=== PATIENT | female | born 1965 | race Caucasian/White ===

== ENCOUNTER 2017-01-01 14:44 | Inpatient (IN) ==
[2017-01-01 15:34] LABS: MANUAL DIFF NEEDED? NO
[2017-01-01 15:41] LABS: URINE CULTURE PL NEEDED? NO
[2017-01-01 15:43] LABS: AGAP 11; ALBUMIN 4.6 g/dL (3.5-5.0); ALKALINE PHOSPHATASE 65 U/L (32-104); BUN 9 mg/dL (8-22); CALCIUM 9.7 mg/dL (8.8-10.2); CHLORIDE 97 mmol/L (98-107); COSMO 276; GOT 20 U/L (10-30); GPT 24 U/L (10-36); POTASSIUM 3.6 mmol/L (3.5-5.1); SODIUM 136 mmol/L (136-145); TCO2 29 mmol/L (25-35); TOTAL BILIRUBIN < 0.15 mg/dL (0.20-1.00); TOTAL PROTEIN 7.1 g/dL (6.3-8.3)
[2017-01-01 15:44] LABS: BASO% 0.1 % (0.0-0.8); EOS# 0.01 X1000 (0.0-0.7); EOS% 0.1 % (0.0-10.0); HEMATOCRIT 42.6 % (37.0-47.0); HEMOGLOBIN 14.3 g/dL (12.0-16.0); IMM GRAN# 0.02 X1000 (0.0-0.04); IMM GRAN% 0.2 % (0.0-0.5); LYMPH# 2.69 X1000 (1.2-3.4); LYMPH% 31.5 % (20.5-51.1); MCH 28.8 PG (27-31); MCHC 33.6 g/dL (33-37); MCV 85.9 FL (81-99); MONO# 0.67 X1000 (0.11-0.59); MONO% 7.8 % (1.7-9.3); MPV 9.7 FL (7.4-10.4); NEUT% 60.3 % (42.2-75.2); PLT 313 X1000 (130-400); RBC 4.96 XMIL (4.2-5.4)
--- NOTE | 2017-01-01 15:47 | EKG Report ---
Test Performed on : 01/01/2017 3:15:30 PM Test Reason : stroke Blood Pressure : / mmHG Vent. Rate : 091 BPM Atrial Rate : 091 BPM P-R Int : 142 ms QRS Dur : 088 ms QT Int : 366 ms P-R-T Axes : 076 039 114 degrees QTc Int : 450 ms Normal sinus rhythm. Possible Left atrial enlargement Nonspecific ST and T wave abnormality Abnormal ECG When compared with ECG of 03-JAN-2014 12:52, Nonspecific T wave abnormality now evident in Inferior leads Nonspecific T wave abnormality, improved in Lateral leads Unconfirmed Result
[2017-01-01 15:49] LABS: BILIRUBIN URINE NEGATIVE (NEGATIVE); BLOOD URINE NEGATIVE (NEGATIVE); CLARITY CLEAR (CLEAR); COLOR YELLOW; GLUCOSE URINE NEGATIVE (NEGATIVE); LEUKOCYTES URINE TRACE (NEGATIVE); NITRITE URINE NEGATIVE (NEGATIVE); PH URINE 6.5; PROTEIN URINE NEGATIVE (NEGATIVE); UROBILINOGEN URINE NORMAL
[2017-01-01 15:53] LABS: INR 0.89 (0.86-1.15); PROTIME 12.4 Seconds (12.1-15.5)
[2017-01-01 16:02] LABS: URINE EPITHELIAL CELLS <10 /HPF (<10); URINE SOURCE CLEAN CATCH
[2017-01-01] MEDS ORDERED: NS 1,000 ML IV ONE ×2 (16:56→17:01)
[2017-01-01] MEDS ORDERED: ASPIRIN PO ONE (16:56)
--- NOTE | 2017-01-01 17:53 | PROVIDER DOCUMENTATION ---
This chart was entered by Reina Zaldivar Scribe, acting as scribe for Alan Boykin MD. HPI-Neurological Disorder - General Chief Complaint: Numbness Stated Complaint: numbness Time Seen by Provider: 01/01/17 14:54 Source: patient Allergies/Adverse Reactions: Patient Allergies Allergy/AdvReac Type Severity Reaction Status Date / Time morphine Allergy Severe RASH Verified 07/29/15 11:26 NSAIDS (Non-Steroidal Allergy Severe NAUSEA/VOMI Verified 07/29/15 11:26 Anti-Inflamma TING codeine Allergy RASH Verified 07/29/15 11:26 hydrocodone Allergy RASH Verified 07/29/15 11:26 Home Medications: Home Medication List Medication Instructions Recorded Confirmed Last Taken Type Duloxetine [Cymbalta] 60 mg PO BID 01/03/14 01/01/17 01/01/17 06:00 History RAMIpril [Altace] 10 mg PO DAILY 01/03/14 01/01/17 01/01/17 06:00 History ROSUVAstatin [Crestor] 10 mg PO QHS 01/03/14 01/01/17 12/31/16 21:00 History Hydrochlorothiazide 12.5 mg PO DAILY 05/29/15 01/01/17 01/01/17 06:00 History Pregabalin [Lyrica] 50 mg PO BID 05/29/15 01/01/17 01/01/17 06:00 History Albuterol Sulfate [Proair Hfa] 2 puff INH Q4-6H PRN PRN 01/01/17 01/01/17 09:15 History Cyclobenzaprine [Flexeril] 10 mg PO TID PRN PRN 01/01/17 01/01/17 12/31/16 21: 00 History Ezetimibe [Zetia] 10 mg PO QHS 01/01/17 01/01/17 12/31/16 21:00 History Fenofibrate [Fenofibrate] 160 mg PO QHS 01/01/17 01/01/17 12/31/16 21:00 History Fentanyl [Fentanyl] 1 patch TD DIRECTED 01/01/17 01/01/17 12/31/16 10:00 History Metformin HCl [Metformin HCl] 500 mg PO BID 01/01/17 01/01/17 01/01/17 06:00 History Sitagliptin [Januvia] 100 mg PO DAILY 01/01/17 01/01/17 01/01/17 06:00 History - History of Present Illness-Neuro Nature of Presenting Problem: Pt is 51 y/o F presents to the ED with L side numbness. Pt states she went to get a breast biopsy this am and shortly after she started having L side numbness. Pt states it started at 1030 this am. Pt states slurred speech. Pt denies hx of stroke. Headache Location: denies: frontal, temporal, occipital, parietal, global Onset/Duration: reports: this morning (1030) Timing: reports: still present Context: reports: facial droop (L), other (numbness to L side of body.) Character of Altered Mental Status: reports: N/A Character of Deficits: reports: new weakness, impaired speech (slurred speech) New weakness or altered sensation location:: reports: LUE, LLE, left facial Cognitive Baseline: alert, oriented x3 Gait Baseline: walks without assistance Associated Symptoms: reports: decreased ability to walk or stand, numbness in legs/feet (L leg), slurred speech, other (numbness to LUE and L facial droop). denies: short of breath, headache, fainting, dizziness, confusion, chest pain, neck/back pain, fatigue, fever/chills, insomnia, loss of consciousness, muscle spasms, nausea, paresthesia, diaphoretic, ringing in ears, seizures, sleepy, tingling in legs/feet, trouble walking, vomiting, vision changes, weakness Similar Symptoms Previously?: No Recently seen or treated by another doctor?: No Review of Systems - Adult - REVIEW OF SYSTEMS - ADULT Constitutional: reports: no symptoms reported Eyes: reports: no symptoms reported Ears, Nose, Mouth & Throat: reports: no symptoms reported Cardiovascular: reports: no symptoms reported Respiratory: reports: no symptoms reported Gastrointestinal: reports: no symptoms reported Genitourinary: reports: no symptoms reported Musculoskeletal: reports: no symptoms reported Integumentary: reports: no symptoms reported Neurological: reports: numbness (LUE and LLE), slurred speech, other (L facial droop). denies: dizziness/vertigo, headache/migraines, syncope Psychiatric: reports: no symptoms reported Endocrine: reports: no symptoms reported Hematologic/Lymphatic: reports: no symptoms reported Allergic/Immunologic: reports: no symptoms reported All Other Systems: Reviewed and Negative Past History - Adult - PAST MEDICAL HISTORY-ADULT Review of Records: reports: Nursing Assessment Review, Medications Reviewed, Social history reviewed & non-contributory. Major Childhood Illnesses: reports: denies history Cardiovascular: reports: HTN, hyperlipidemia Respiratory: reports: denies history Gastrointestinal: reports: denies history Obstetrical/Gynecological: reports: denies history Genitourinary: reports: denies history Musculoskeletal: reports: fibromyalgia Neurological: reports: denies history Endocrine/Immune: reports: Diabetes Other Conditions: reports: denies history - PRIOR SURGERIES/PROCEDURES Surgical/Procedure History: reports: hysterectomy - IMMUNIZATION STATUS Childhood Immunizations: See Nurse Assessment Flu Vaccine: See Nurse Assessment - FAMILY HISTORY Family History: reviewed, not pertinent - SOCIAL HISTORY Smoking: cigarettes, less than 1 pack/day Provider spent 3-5 mins advising pt. on dangers of tobacco.: Discussed manners to quit use, and f/u contacts for add'l counseling. Substance Use: denies Living Situation: family Physical Exam- Neurological - Physical Exam-Neuro Initial Vital Signs Reviewed: Yes General Appearance: appears well, alert, no apparent distress Eye Exam: bilateral eye: normal inspection, PERRL, EOMI HENMT: normocephalic/atraumatic, moist mucous membranes, normal ENT inspection, TMs normal, pharynx normal Head Injury: no evidence of injury Neck: non-tender, full range of motion, supple, normal inspection Respiratory: chest non-tender, lungs clear, normal breath sounds, no pleuratic chest pain, no respiratory distress, no accessory muscle use Cardiovascular: normal peripheral pulses, regular rate, rhythm, no edema, no gallop, no JVD, no murmur Abdominal Exam: normal bowel sounds, non tender, soft, no organomegaly, no pulsatile mass Lymphatic: no adenopathy Extremity: non-tender, no pedal edema, 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 Exam: normal hearing, PERRL, abnormal speech (slurred speech), facial droop (L) Coordination/Gait: abnormal gait Motor/Sensory: weak motor strength LUE, weak motor strength LLE Neurologic: abnormal gait, facial droop (L), motor weakness (LUE and LLE) Integumentary: normal color, normal turgor, warm/dry Psych/Mental Status: normal mood/affect, oriented x 3 Progress - PLAN OF CARE/RESULTS Progress/Plan/Lab Results: Vital Signs - 8 hr 01/01/17 14:45 Temperature 98 F Pulse Rate 88 Respiratory Rate 18 Blood Pressure 163/81 O2 Sat by Pulse Oximetry 96 Laboratory Results - last 24 hr 01/01/17 01/01/17 01/01/17 15:10 15:10 15:10 WBC RBC Hgb Hct MCV MCH MCHC RDW Std Deviation Plt Count MPV Immature Gran % (Auto) Neut % (Auto) Lymph % (Auto) [place] % (Auto) Eos % (Auto) Baso % (Auto) Immature Gran # (Auto) Neut # (Auto) Lymph # (Auto) [place] # (Auto) Eos # (Auto) Baso # (Auto) PT 12.4 INR 0.89 APTT (Factor Assay) 28.6 Sodium 136 Potassium 3.6 Chloride 97 L Carbon Dioxide 29 Anion Gap 11 BUN 9 Creatinine 0.7 Estimated GFR/1.73 m2 > 60 BUN/Creatinine Ratio 13 Glucose 194 H Calculated Osmolality 276 Calcium 9.7 Total Bilirubin < 0.15 L AST 20 ALT 24 Alkaline Phosphatase 65 Total Protein 7.1 Albumin 4.6 Globulin 3.0 Albumin/Globulin Ratio 2.0 Urine Source Urine Color Urine Clarity Urine pH Ur Specific [place] Urine Protein Urine Ketones Urine Blood Urine Nitrite Urine Bilirubin Urine Urobilinogen Urine Microscopic RBC Urine WBC Ur Epithelial Cells Urine Glucose 01/01/17 01/01/17 15:10 15:33 WBC 8.54 RBC 4.96 Hgb 14.3 Hct 42.6 MCV 85.9 MCH 28.8 MCHC 33.6 RDW Std Deviation 13.9 Plt Count 313 MPV 9.7 Immature Gran % (Auto) 0.2 Neut % (Auto) 60.3 Lymph % (Auto) 31.5 [place] % (Auto) 7.8 Eos % (Auto) 0.1 Baso % (Auto) 0.1 Immature Gran # (Auto) 0.02 Neut # (Auto) 5.14 Lymph # (Auto) 2.69 [place] # (Auto) 0.67 H Eos # (Auto) 0.01 Baso # (Auto) 0.01 PT INR APTT (Factor Assay) Sodium Potassium Chloride Carbon Dioxide Anion Gap BUN Creatinine Estimated GFR/1.73 m2 BUN/Creatinine Ratio Glucose Calculated Osmolality Calcium Total Bilirubin AST ALT Alkaline Phosphatase Total Protein Albumin Globulin Albumin/Globulin Ratio Urine Source CLEAN CATCH Urine Color YELLOW Urine Clarity CLEAR Urine pH 6.5 Ur Specific [place] 1.010 Urine Protein NEGATIVE Urine Ketones NEGATIVE Urine Blood NEGATIVE Urine Nitrite NEGATIVE Urine Bilirubin NEGATIVE Urine Urobilinogen NORMAL Urine Microscopic RBC Not Reportable Urine WBC TRACE A Ur Epithelial Cells <10 Urine Glucose NEGATIVE Orders Category Date Time Status HEAD W/O CONTRAST [CT] Stat Exams 01/01/17 14:55 Taken CBC WITH ELECTRONIC DIFF [HEME] Stat Lab 01/01/17 15:10 Completed CMP [COMPREHENSIVE METABOLIC PANEL] [CHEM] Stat Lab 01/01/17 15:10 Com[address]IME WITH INR PL [COAG] Stat Lab 01/01/17 15:[address] [COAG] Stat Lab 01/01/17 15:10 Completed UA NIMS W/REFLEX CULT PL [URINALYSIS] Stat Lab 01/01/17 15:33 Completed 0.9% Sodium Chloride Inj [Ns] 1,000 ml Med 01/01/17 17:01 Active IV 125 mls/hr 0.9% Sodium Chloride Inj [Ns] 1,000 ml Med 01/01/17 16:56 Active IV 999 mls/hr Aspirin Med 01/01/17 16:56 Discontinued 325 mg PO NOW ONE EKG [EKG] Stat Ther 01/01/17 15:05 Draft Result Diagrams: 01/01/17 15:10 01/01/17 15:10 - EKG 1 Time of EKG reading by physician:: 15:15 EKG Read and Signed by:: Alan Boykin EKG Interpretation (*Must complete 3 of following elements*): Abnormal Rate: 91 Rhythm: normal sinus rhythm Comments: possible left atrial enlargement; nonspecific ST and T wave abnormality - CT/MRI 1 CT Study: Head Impression: Abnormal CT Results: no blood. mild chronic ischemic changes with a right BG lacune - CONSULTS/PCP/HOSPITALIST Notification #1 *Consult/PCP/Hospitalist*: Dr. Foster Time Discussed: 17:40 (Dr. Foster states there are not any beds at [place]) Reason/Comments: Dr. Boykin consulted with Dr. Foster about Pt Consult Disposition: other #2 Consult: Dr. Hdz Time Discussed: 17:44 Reason/Comments: Dr. Boykin consults with Dr. Hdz about Pt Consult Disposition: Admit Departure - Departure Time of Disposition Decision: 17:47 DIAGNOSIS: Stroke Qualifiers: CVA mechanism: unspecified Qualified Code(s): I63.9 - Cerebral infarction, unspecified Disposition: ADMITTED INPATIENT 09 Certified Medical Emergency: Emergent Condition: Stable Additional Freetext Instructions: ED Follow Up Instructions: You have been treated by a care provider in the Emergency Department. These instructions are being provided to you so you can have an understanding of how to care for yourself upon discharge. Upon discharge from the Emergency Department, you are responsible for making arrangements for follow-up care by a physician of your choice. Take all prescribed medications as directed. Return to the Emergency Department immediately for any new or worsening symptoms. You may call the Physician Referral phone number at [phone] to obtain a list of Physicians who are taking new patients. Referrals and Follow-Ups: None,PCP [Primary Care Provider] - This chart was documented by the indicated scribe, (Reina Zaldivar Scribe) and accurately reflects the services I performed and decisions made by me, Alan Boykin MD, as attested by the provider's signature.
[2017-01-01] MEDS ORDERED: NS 1,000 ML IV SCH (19:49)
[2017-01-01] MEDS ORDERED: TYLENOL PO PRN (19:50)
[2017-01-01] MEDS ORDERED: FLEXERIL PO PRN (19:52)
[2017-01-01] MEDS: CYMBALTA PO SCH (20:14)
[2017-01-01] MEDS: ZETIA PO SCH (20:14)
[2017-01-01] MEDS: LYRICA PO SCH (20:15)
[2017-01-01] MEDS: CRESTOR PO SCH (20:15)
[2017-01-01] MEDS: TRICOR PO SCH (20:15)
[2017-01-01] MEDS: VENTOLIN HFA INH PRN (22:57)
--- NOTE | 2017-01-02 07:17 | Diag Imaging Result Document ---
PROCEDURE NAME: HEAD W/O CONTRAST - 01/01/2017 CT BRAIN WITHOUT CONTRAST: FINDINGS: No parenchymal hemorrhage. No epidural or subdural hematoma. No subarachnoid hemorrhage. No mass identified on this noncontrasted exam. No hydrocephalus. Questionable lacune in the right basal ganglia. No sinus opacification. IMPRESSION: 1. No hemorrhage. 2. I believe there is a small right basal ganglia lacune with mild microvascular ischemic changes. A preliminary report was given at 3:39 p.m..
[2017-01-02] MEDS ORDERED: ALTACE PO SCH (09:00)
[2017-01-02] MEDS: GLUCOPHAGE PO SCH ×2 (09:08→17:19)
[2017-01-02] MEDS: CYMBALTA PO SCH ×2 (09:08→21:16)
[2017-01-02] MEDS: JANUVIA PO SCH (09:09)
[2017-01-02] MEDS: HYDROCHLOROTHIAZIDE PO SCH (09:09)
[2017-01-02] MEDS: LYRICA PO SCH ×2 (09:09→21:16)
--- NOTE | 2017-01-02 11:38 | PROGRESS NOTE ---
DATE: 01/02/2017 SUBJECTIVE: The patient notes no real change, with certainly no worsening. She does note some drooping of the left side of her face and still weakness on her left side. PHYSICAL EXAMINATION: Vital Signs: Temperature 97, pulse 85, respiratory rate 20, blood pressure 174/68 to 187/78. Sat 95% on room air. General: Patient is awake, alert, oriented. She is currently in no distress. She is feeling better. Neck: Supple. Cardiovascular: Regular rate. Chest: Relatively clear. Abdomen: Soft. Extremities: She is noted to have decreased movement of her left lower extremity 3/5, 4/5 in her left upper extremity. She is noted to have some facial droop on the left. Speech is still somewhat garbled, but easily understood. She is having no trouble swallowing. CT demonstrates no hemorrhage, with a right small basal ganglia lacuna and mild microvascular chronic ischemic changes. Carotid is pending. ASSESSMENT: 1. Acute cerebrovascular accident. 2. Hypertension. 3. Chronic pain. 4. High cholesterol. 5. Diabetes. 6. Recent breast biopsy. PLAN: We will continue patient as currently noted. We will stop her IV fluids at this point. We will begin attempting slightly better blood pressure control. We will continue her home medications. [facility] Further orders as needed. cc: Scooter Hdz MD
--- NOTE | 2017-01-02 19:08 | HISTORY AND PHYSICAL ---
CHIEF COMPLAINT: Left side numbness. HISTORY OF PRESENT ILLNESS: This is a very pleasant, 51-year-old female, who underwent a breast biopsy this morning under local anesthesia. Shortly after she began to have left-sided numbness. She thinks it started about 10:30 this morning. Shortly after the numbness she developed slurred speech. She denied any difficulty walking, swallowing, any chest pain or palpitations. CT of the head was performed which revealed no hemorrhage, a small right basal ganglia lacuna with mild microvascular ischemic changes. No epidural or subdural hematoma. No hydrocephalus. On arrival her blood pressures were 160-170/80s. She did have a diastolic of 108 at one time. She was given an aspirin, a fluid bolus, and admitted for further evaluation and treatment. PAST MEDICAL HISTORY: Diabetes mellitus, hypertension, chronic back pain, Cervantes's palsy, fibromyalgia. PAST SURGICAL HISTORY: Hysterectomy, breast biopsy. SOCIAL HISTORY: She smokes a pack a day. She denies alcohol or illicit drug use. ALLERGIES: Morphine which causes a rash, NSAIDs which cause nausea and vomiting, codeine and hydrocodone which causes a rash. HOME MEDICATIONS: A list will be obtained. REVIEW OF SYSTEMS: A 14 point review of systems is discussed with the patient with pertinent positives stated in the HPI. She denied chest pain, palpitations, syncope, dizziness, change in vision, difficulty swallowing, shortness of breath, cough, fever, chills, nausea, vomiting, diarrhea, constipation, black or bloody vomitus, black or bloody stools. PHYSICAL EXAMINATION: GENERAL: This is a 51-year-old female who is sitting up in the bed in mild distress. VITAL SIGNS: Blood pressure 175/80 with a heart rate of 84, respirations are 20, temperature is 98.1 degrees oral with room air saturations of 96%. HEENT: Head is normocephalic, atraumatic. Pupils equal, round, reactive to light. EOMs are intact. Sclerae anicteric. Mucous membranes are moist. NECK: Supple with trachea midline. CARDIOVASCULAR: Regular rate and rhythm. No rubs, murmurs, or gallops. S1, S2 appreciated. PULMONARY: Breath sounds are clear with no increased work of breathing noted. GASTROINTESTINAL: Abdomen is soft, nontender, nondistended with bowel sounds in all 4 quadrants. BACK: No CVAT. No spine tenderness. EXTREMITIES: No clubbing, cyanosis, or edema. Calves are nontender. Pulses are palpable x4. NEUROLOGIC: Forehead is spared. She is noted to have a left facial droop. She is able to close both eyes. She has 4/5 strength to the left arm and left leg, 5/5 to right arm and right leg. Her speech is slurred. She is able to communicate. She is oriented x3. Answers questions appropriately. Left shoulder shrug is a little less than right. Finger to nose is 5/5 bilateral with the left being slower and a little more difficult to perform. LABS: WBC is 8.5 with hemoglobin 14.3, hematocrit 42.6, and platelets of 313,000. INR is 0.89, sodium 136, potassium 3.6, BUN 9, creatinine 0.7 with a glucose of 194. CT scan as stated above. ASSESSMENT: 1. Acute cerebrovascular accident. 2. Hypertension. 3. Diabetes mellitus. 4. Chronic pain. 5. High cholesterol. 6. Recent breast biopsy. PLAN: We will continue with gentle IV hydration. We will monitor blood pressure. We will allow permissive hypertension at present, treating only for blood pressures greater than 200/100. After 24-48 hours we will regain tighter control of blood pressures. We will identify and continue her home medications as appropriate. As she swallows with no difficulty, we will go ahead and order a diabetic diet. We will consult Physical Therapy. Fingerstick blood sugars with pattern blood glucose. Further treatments pending hospital course. Dictated by CARLIE Carnes for Scooter Hdz MD cc: CARLIE Carnes MD
[2017-01-02] MEDS: CRESTOR PO SCH (21:16)
[2017-01-02] MEDS: TRICOR PO SCH (21:16)
[2017-01-02] MEDS: ZETIA PO SCH (21:16)
[2017-01-02] MEDS: HUMALOG DOSE (PARKWAY) SUBQ SCH (21:18)
[2017-01-02] MEDS: VENTOLIN HFA INH PRN (22:31)
[2017-01-03] MEDS: VENTOLIN HFA INH PRN ×3 (05:53→19:34)
[2017-01-03] MEDS: HUMALOG DOSE (PARKWAY) SUBQ SCH ×4 (06:10→20:42)
--- NOTE | 2017-01-03 07:06 | Extremity Venous Study ---
PROCEDURE NAME: Carotid Ultrasound - 01/02/2017 CAROTID FLOW STUDIES: FINDINGS: There is atherosclerotic plaquing in the distal common carotid artery, carotid bulb, and proximal internal carotid artery on the right. Maximum systolic velocity in the right internal carotid artery is 142 cm/sec, maximum diastolic velocity is 46 cm/sec. The right internal ozkktkz-ht-bhshwd carotid artery systolic velocity ratio is 1.76. The flow velocities and ratios suggest 40%-59% stenosis in the right internal carotid artery. The right vertebral artery demonstrates antegrade flow. There is atherosclerotic plaquing in the distal common carotid artery, carotid bulb, and proximal internal carotid artery on the left. Maximum systolic velocity in the left internal carotid artery is 137 cm/sec and maximum diastolic velocity is 38 cm/sec. The left wrnovwqt-au-ydwmwb carotid artery systolic velocity ratio is 1.65. The flow velocities and ratios suggest 40%-59% stenosis in the left internal carotid artery. The left vertebral artery demonstrates antegrade flow. IMPRESSION: Substantial atherosclerotic plaquing in bilateral carotid systems. Evidence of 40%- 59% stenosis in the right internal carotid artery. Evidence of 40%-59% stenosis in the left internal carotid artery.
[2017-01-03] MEDS ORDERED: ALTACE PO SCH (09:00)
[2017-01-03] MEDS: CYMBALTA PO SCH ×2 (09:35→20:43)
[2017-01-03] MEDS: GLUCOPHAGE PO SCH ×2 (09:35→18:58)
[2017-01-03] MEDS: JANUVIA PO SCH (09:35)
[2017-01-03] MEDS: LYRICA PO SCH ×2 (09:35→20:43)
[2017-01-03] MEDS: HYDROCHLOROTHIAZIDE PO SCH (09:35)
[2017-01-03] MEDS ORDERED: DURAGESIC 25 MICROGM/HR PATCH TD SCH (10:00)
--- NOTE | 2017-01-03 14:57 | PROGRESS NOTE ---
DATE: 01/03/2017 SUBJECTIVE: Patient has no complaints today. She denies any pain, headache, dizziness, difficulty swallowing. OBJECTIVE: Vital Signs: Blood pressure is 135/66 with a heart rate of 77, respirations are 18, temperature is 98.7 degrees oral with oxygen saturations of 96 and 98% on room air. Cardiovascular: Regular rate and rhythm. S1 and S2 appreciated. Pulmonary: Breath sounds are clear with no increased work of breathing noted. Gastrointestinal: Abdomen is soft, nontender, nondistended with bowel sounds in all 4 quadrants. Extremities: No clubbing, cyanosis, or edema. Neurologic: She is alert and oriented. Speech is clear. She has 3/5 muscle strength to the left arm, 4/5 to the left lower extremity, 5/5 to the right upper and lower extremities. ASSESSMENT: 1. Acute CVA. 2. Hypertension. 3. Diabetes mellitus. 4. Chronic pain. 5. High cholesterol. 6. Recent breast biopsy. We will continue with our current regimen. She has been evaluated by physical therapy who recommends skilled PT with intervention with OT intervention. The patient is currently being evaluated by [facility] for rehab. Dictated by CARLIE Carnes for Scooter Hdz MD cc: CARLIE Carnes MD
--- NOTE | 2017-01-03 20:10 | DISCHARGE SUMMARY ---
ADMISSION DATE: 01/01/2017 DISCHARGE DATE: 01/04/2017 DIAGNOSES: 1. Acute cerebrovascular accident. 2. Hypertension. 3. Diabetes mellitus. 4. Chronic pain on fentanyl patch. 5. High cholesterol. 6. Recent right breast biopsy. DIAGNOSTICS: 01/01/2017: CT of the head revealed no hemorrhage, no epidural or subdural hematoma, no mass, no hydrocephalus. Questionable lacunar in the right basal ganglia. No sinus opacification. 01/02/2017: Substantial atherosclerotic plaquing in bilateral carotid systems with evidence of 40-50% stenosis in the right internal carotid artery, evidence of 40-59% stenosis in the left internal carotid artery. HOSPITAL COURSE: Ms. Claudio presented to the emergency room after developing left-sided numbness with slurred speech shortly after having a breast biopsy under local anesthesia. She denied any difficulty walking or swallowing, any lapse of memory or change in vision. CT of the head revealed a small right basal ganglia lacunar with mild microvascular ischemic changes. She did have some left-sided tenderness with 3-4/5 strength to left arm and left leg. She had 5/5 to the right arm and right leg. Her speech was slurred at that episode and on admission to the hospital her speech is back to normal at present. We will allow permissive hypertension for the first 24 hours with blood pressures ranging in the 160s-170s/60s-70s where it has remained and the 130s-160s/70s. We did continue her home medications. Trending blood sugars ranged in the 120-160 range. She was evaluated by Physical Therapy who felt that she did in fact need inpatient rehabilitation, PT as well as occupational therapy. DISCHARGE PHYSICAL EXAMINATION: Cardiovascular: Regular rate and rhythm. S1 and S2 appreciated. Pulmonary: Breath sounds are clear. No increased work of breathing noted. Gastrointestinal: Abdomen is soft, nontender, nondistended, with bowel sounds in all 4 quadrants. Extremities: No clubbing, cyanosis, or edema. Pulses palpable x4. Calves nontender. Neurologic: She is alert and oriented. Speech is clear. Muscle strength 3/5 to the left arm and 4/5 to the left leg, 5/5 to the right upper and lower extremities. She has no difficulty with speech, no difficulty with swallowing. DISCHARGE MEDICATIONS: 1. Crestor 20 mg at bedtime. 2. Metformin 1000 b.i.d. 3. Lyrica 100 mg b.i.d. 4. Fentanyl patch 25 mcg q. 72 hours. 5. Flexeril 5 mg t.i.d. p.r.n. 6. ProAir inhaler 2 puffs q.4-6 hours p.r.n. 7. Januvia 100 mg daily. 8. Fenofibrate 160 at bedtime. 9. Zetia 10 mg at bedtime. 10. Hydrochlorothiazide 12.5 daily. 11. Altace 20 mg daily. 12. Cymbalta 60 mg b.i.d. DISCHARGE ACTIVITY: As per Physical Therapy's recommendations. DISCHARGE FOLLOWUP: Per rehabilitation recommendations on discharge from rehabilitation. DISPOSITION: She will be discharged to [facility] in stable condition. She is going with her . DISCHARGE TIME: Greater than 30 minute discharge. Dictated by CARLIE Carnes for Scooter Hdz MD cc: CARLIE Carnes MD
[2017-01-03] MEDS: ZETIA PO SCH (20:43)
[2017-01-03] MEDS: TRICOR PO SCH (20:43)
[2017-01-03] MEDS: CRESTOR PO SCH (20:43)
[2017-01-04] MEDS: VENTOLIN HFA INH PRN ×2 (01:18→08:03)
[2017-01-04] MEDS: HUMALOG DOSE (PARKWAY) SUBQ SCH (07:00)
[2017-01-04 07:53] VITALS: BP 155/69
[2017-01-04] MEDS: GLUCOPHAGE PO SCH (08:22)
[2017-01-04] MEDS ORDERED: ALTACE PO SCH (09:00)
[2017-01-04] MEDS: JANUVIA PO SCH (09:02)
[2017-01-04] MEDS: LYRICA PO SCH (09:02)
[2017-01-04] MEDS: CYMBALTA PO SCH (09:02)
[2017-01-04] MEDS: HYDROCHLOROTHIAZIDE PO SCH (09:02)
== END 2017-01-04 09:54 ==
LOC: P.MEDSURG 14:44 → P.ED 14:44 → OBSVTOIN 19:00
PROVIDERS: ATTEND Family Medicine